=== PATIENT | female | born 1955 | race Caucasian/White ===

== ENCOUNTER 2020-06-20 12:45 | Emergency (ER) | payer OTHER ==
[~2020-06-20] VITALS: Ht 165.1 cm; Wt 117.9 kg
[2020-06-20 12:53] VITALS: Ht 165.1 cm; Wt 117.9 kg
[2020-06-20 13:22] LABS: CARBON DIOXIDE 30.9 mmol/L (21-32); POTASSIUM SERUM 4.1 mmol/L (3.5-5.1)
[2020-06-20 13:34] LABS: ALBUMIN 3.6 g/dL (3.4-5.0); BILIRUBIN TOTAL 0.4 mg/dL (0.20-1.00); MAGNESIUM 2.4 mg/dL (1.8-2.4); T4(THYROXINE) 4.5 ug/dL (4.7-13.3); TOTAL PROTEIN, SERUM 7.7 g/dL (6.4-8.2)
[2020-06-20 13:43] LABS: BASOPHIL % 0.6 % (0-2); PLATELET COUNT 294 x10^3mcL (130-400); RED CELL DISTRIBUTION WIDTH 13.9 % (11.5-14.5)
[2020-06-20 15:23] LABS: microscopic required? NO
[2020-06-20 15:41] LABS: urine erythrocyte NEGATIVE (NEGATIVE)
[2020-06-20 15:55] LABS: AMPHETAMINE QUAL UR NONE DETECTED (See below)
[2020-06-20 17:33] VITALS: BP 123/68
== END 2020-06-20 17:33 | disposition home or self-care (01) ==
LOC: ED 12:45
PROVIDERS: Emergency Medicine
DX: R42 Dizziness and giddiness (principal); E03.9 Hypothyroidism, unspecified; I10 Essential (primary) hypertension; E11.9 Type 2 diabetes mellitus without complications; E66.9 Obesity, unspecified; R11.0 Nausea; Z68.41 Body mass index [BMI] 40.0-44.9, adult; Z90.49 Acquired absence of other specified parts of digestive tract; Z90.710 Acquired absence of both cervix and uterus; Z20.828 Contact with and (suspected) exposure to other viral communicable diseases
CPT/HCPCS: J7030; J8597